=== PATIENT | male | born 1975 | race Caucasian/White ===

== ENCOUNTER 2023-05-17 13:39 | Emergency (ER) | payer OTHER ==
[~2023-05-17] VITALS: Ht 170.2 cm; Wt 113.4 kg
[2023-05-17 14:00] VITALS: BP_SYST 128; PULSE 82; RESP 19; TEMP 97.2; O2SAT 98
[2023-05-17 15:13] LABS: INFLUENZA TYPE A Negative (NEGATIVE); INFLUENZA TYPE B NEGATIVE (NEGATIVE)
[2023-05-17] MEDS ORDERED: PHEDM120 PO (15:23)
[2023-05-17] MEDS ORDERED: IBUP-1969 PO (15:23)
== END 2023-05-17 15:48 | disposition home or self-care (01) ==
LOC: SED 13:39
DX: B34.9 Viral infection, unspecified (principal); Z20.822 Contact with and (suspected) exposure to COVID-19; Z79.899 Other long term (current) drug therapy
CPT/HCPCS: 36415; 99283